=== PATIENT | female | born 1960 | race Caucasian/White ===

== ENCOUNTER → 2017-03-08 | Outpatient (CLI) | payer BC ==
[~2017-03-08] MED LIST: ALDACTONE 100M100 MG; INDERAL 10MG10 MG; LASIX 40MG TABL40 MG PO; SYNTHROID0.05 MG/TA; VITAMIN D 50,1.25 MG
== END ==
LOC: MC.RAD 13:40
DX: Z12.31 Encounter for screening mammogram for malignant neoplasm of breast (principal); N64.89 Other specified disorders of breast

== ENCOUNTER → 2017-03-16 | Outpatient (CLI) | payer BC | LOC: MC.RAD 10:29 | DX: N63.24 Unspecified lump in the left breast, lower inner quadrant (principal); N64.89 Other specified disorders of breast ==

== ENCOUNTER → 2017-10-15 | Outpatient (CLI) | payer BC | LOC: MC.RAD 09:00 | DX: R92.8 Other abnormal and inconclusive findings on diagnostic imaging of breast (principal) ==

== ENCOUNTER → 2018-06-17 | Outpatient (CLI) | payer BC | LOC: MC.RAD 08:15 | DX: N63.10 Unspecified lump in the right breast, unspecified quadrant (principal); N63.20 Unspecified lump in the left breast, unspecified quadrant; R92.8 Other abnormal and inconclusive findings on diagnostic imaging of breast | CPT/HCPCS: G0279 ==

== ENCOUNTER → 2018-06-25 | Outpatient (CLI) | payer BC | LOC: MC.RAD 09:49 | DX: N63.14 Unspecified lump in the right breast, lower inner quadrant (principal); R92.8 Other abnormal and inconclusive findings on diagnostic imaging of breast ==

== ENCOUNTER → 2019-12-26 | Outpatient (CLI) | payer BC | LOC: MC.RAD 13:22 | DX: Z12.31 Encounter for screening mammogram for malignant neoplasm of breast (principal); Z98.82 Breast implant status ==